=== PATIENT | female | born 1955 | race Caucasian/White ===

== ENCOUNTER → 2023-03-14 14:22 | Outpatient (CLI) | payer MEDICARE, OTHER, SELFPAY ==
--- NOTE | 2023-03-14 14:23 | DI.US.S_ITS ---
PROCEDURE: US ABDOMEN COMPLETE INDICATIONS: ABDOMEN PAIN ON THE LEFT TECHNIQUE: Real-time scanning was performed of the abdominal and retroperitoneal organs, with image documentation. COMPARISON: None. FINDINGS: Liver: Liver is normal in size and homogeneous in echotexture. Multiple anechoic structures are seen in left lobe of liver measures up to 2.2 x 1.7 x 1.9 cm in size and show no internal vascularity. Gallbladder: Gallbladder is within normal limits. Biliary ducts: Intrahepatic bile ducts are non-dilated. Extrahepatic bile duct caliber measures 3.2 mm. Normal is 6-7 mm or less in diameter, or 10 mm or less post-cholecystectomy. Pancreas: Visualized portions of the pancreas are sonographically normal. Spleen: Spleen is normal in size and homogeneous in echotexture. Kidneys: Kidneys are normal in size and echotexture. Right kidney measures 8.9 cm long; left kidney measures 11.1 cm long. No hydronephrosis or nephrolithiasis. No solid masses. Medial left renal cyst measures 2 x 1.7 x 2.4 cm in size is seen. Aorta: Visualized aorta is normal in caliber at less than 3 cm. Iliacs: Proximal common iliac arteries are normal in caliber at less than 2.5 cm. IVC: Intrahepatic inferior vena cava is patent. Miscellaneous: No free abdominal fluid. IMPRESSION: 1. Suggestion of multiple left hepatic cysts as above. 2. Normal appearing gallbladder. No biliary ductal dilatation. 3. Slightly atrophic appearing right kidney compared to the left side. Left renal cyst as above. No hydronephrosis. No solid appearing renal lesion. 4. Rest of the exam is unremarkable. Dictated by: Rustam Becerra M.D. on 03/14/2023 at 16:10 Approved by: Rustam Becerra M.D. on 03/14/2023 at 16:12
[2023-04-11 10:08] LABS: Fecal Immunochemical Test Negative (Negative)
== END ==
PROVIDERS: PCP Nurse Practitioner; Referring Provider Nurse Practitioner; Visit Provider Nurse Practitioner
DX: N28.1 Cyst of kidney, acquired (principal)
CPT/HCPCS: 76700; 82274

== ENCOUNTER → 2023-10-06 14:04 | Outpatient (CLI) | payer MEDICARE, OTHER, SELFPAY ==
[2023-10-06 14:08] LABS: Urine Volume 10mL (spun)
[2023-10-06 14:17] LABS: Appearance Urine UA CLEAR; Bilirubin Urine UA NEGATIVE (NEGATIVE); Color Urine UA YELLOW; Glucose Urine UA NEGATIVE (Negative); Ketones Urine UA NEGATIVE (NEGATIVE); Leukocyte Esterase Urine UA 3+ (NEGATIVE); Nitrite Urine UA NEGATIVE (Negative); Occult Blood Urine UA NEGATIVE (Negative); Protein Urine UA NEGATIVE (Negative); Specific Gravity Urine UA <=1.005 (1.000-1.035); Urobilinogen Urine UA 0.2 E.U./dL (0.2)
[2023-10-06 14:20] LABS: pH Urine UA 5.5 (4.5-8.0)
[2023-10-06 14:21] LABS: Bacteria Urine Few (2-10); Culture Indicated Urine Specimen Cultured; RBC Urine None Seen (0-5/HPF); Squamous Epithelial Cell Urine 0-1 /HPF (0-5/HPF); WBC Urine 1-5/HPF (0-5/HPF)
== END ==
PROVIDERS: PCP Nurse Practitioner; Referring Provider Nurse Practitioner; Visit Provider Nurse Practitioner
DX: R30.0 Dysuria (principal)
CPT/HCPCS: 81001; 87086

== ENCOUNTER → 2023-12-16 11:47 | Outpatient (CLI) | payer MEDICARE, OTHER, SELFPAY ==
[2023-12-16 13:35] LABS: Free T3, Triiodothyronine Free 3.27 pg/mL (2.77-5.27); Free T4, Direct Thyroxine 1.12 ng/dL (0.78-2.19)
[2023-12-16 13:49] LABS: Thyroid Stimulating Hormone 1.48 uIU/mL (0.47-4.68)
[2023-12-17 08:46] LABS: Thyroid Peroxidase Antibodies 16 IU/mL (0-34)
== END ==
PROVIDERS: PCP Nurse Practitioner; Referring Provider Nurse Practitioner; Visit Provider Nurse Practitioner
DX: R53.83 Other fatigue (principal); R41.89 Other symptoms and signs involving cognitive functions and awareness; R53.81 Other malaise
CPT/HCPCS: 36415; 84439; 84443; 84481; 86376

== ENCOUNTER → 2024-05-02 10:01 | Outpatient (CLI) | payer MEDICARE, OTHER, SELFPAY ==
[2024-05-02 10:37] LABS: Appearance Urine UA SL CLOUDY; Bilirubin Urine UA NEGATIVE (NEGATIVE); Color Urine UA YELLOW; Glucose Urine UA NEGATIVE (Negative); Ketones Urine UA NEGATIVE (NEGATIVE); Leukocyte Esterase Urine UA 3+ (NEGATIVE); Nitrite Urine UA NEGATIVE (Negative); Occult Blood Urine UA NEGATIVE (Negative); Protein Urine UA NEGATIVE (Negative); Urobilinogen Urine UA 0.2 E.U./dL (0.2)
[2024-05-02 10:39] LABS: pH Urine UA 6.5 (4.5-8.0)
[2024-05-02 10:40] LABS: Urine Volume 10mL (spun)
[2024-05-02 10:41] LABS: Bacteria Urine Many (>30); RBC Urine None Seen (0-5/HPF); WBC Urine 10-30/HPF (0-5/HPF)
[2024-05-02 10:42] LABS: Culture Indicated Urine Specimen Cultured; Squamous Epithelial Cell Urine 1-5 /HPF (0-5/HPF)
== END ==
PROVIDERS: PCP Nurse Practitioner; Referring Provider Nurse Practitioner; Visit Provider Nurse Practitioner
DX: R30.0 Dysuria (principal)
CPT/HCPCS: 81003; 81015; 87077; 87086; 87186

== ENCOUNTER → 2025-05-23 14:36 | Outpatient (CLI) | payer MEDICARE, OTHER, SELFPAY ==
[2025-05-23 16:41] LABS: Ferritin 14 ng/mL (11-264)
[2025-05-23 17:09] LABS: Folate > 20.0 ng/mL (2.76-20.0); Vitamin B12 463 pg/mL (239-931)
== END ==
PROVIDERS: PCP Nurse Practitioner; Referring Provider Nurse Practitioner; Visit Provider Nurse Practitioner
DX: E53.8 Deficiency of other specified B group vitamins (principal); R53.1 Weakness; Z79.899 Other long term (current) drug therapy
CPT/HCPCS: 36415; 82607; 82728; 82746

== ENCOUNTER → 2025-07-09 16:49 | Outpatient (CLI) | payer MEDICARE, OTHER, SELFPAY ==
[2025-07-09 18:49] LABS: Folate 18.5 ng/mL (2.76-20.0); Vitamin B12 948 pg/mL (239-931)
== END ==
PROVIDERS: PCP Nurse Practitioner; Referring Provider Nurse Practitioner; Visit Provider Nurse Practitioner
DX: E53.8 Deficiency of other specified B group vitamins (principal)
CPT/HCPCS: 36415; 82607; 82746

== ENCOUNTER → 2025-08-05 15:17 | Outpatient (CLI) | payer MEDICARE, OTHER, SELFPAY ==
[2025-08-05 16:41] LABS: Add Manual Diff / Slide Review NO; Hematocrit 39.4 % (36-46); Hemoglobin 13.1 g/dL (12.0-16.0); Lymphocytes Absolute Auto 1900 /uL (1100-4500); Mean Corpuscular HGB Conc 33.2 % (30-36); Mean Corpuscular Hemoglobin 29.1 PG (26-34); Mean Corpuscular Volume 87.6 fL (80-100); Platelet Count 240 X10^3/uL (150-400)
[2025-08-05 17:18] LABS: Alanine Aminotransferase 27 IU/L (<35); Albumin 4.2 g/dL (3.5-5.0); Albumin Globulin Ratio 1.8 (1.0-2.8); Alkaline Phosphatase 73 U/L (38-126); Blood Urea Nitrogen 20 mg/dL (7-17); Calcium 9.8 mg/dL (8.4-10.2); Carbon Dioxide 27 mmol/L (22-32); Chloride 104 mmol/L (98-107); Estimated Glomerular Filt Rate > 60 mL/min (>60); Globulin 2.3 g/dL (1.7-4.1); Glucose 103 mg/dL (70-99); HEMOLYSIS < 15 (0-50); Potassium 4.3 mmol/L (3.4-5.1); Sodium 137 mmol/L (137-145); Total Protein 6.5 g/dL (6.3-8.2)
[2025-08-05 18:10] LABS: Vitamin B12 876 pg/mL (239-931)
== END ==
PROVIDERS: PCP Nurse Practitioner; Referring Provider Nurse Practitioner; Visit Provider Nurse Practitioner
DX: D64.9 Anemia, unspecified (principal); E53.8 Deficiency of other specified B group vitamins; R53.83 Other fatigue
CPT/HCPCS: 36415; 80053; 82607; 85025